=== PATIENT | male | born 1960 | race Caucasian/White ===

== ENCOUNTER → 2017-08-04 | Outpatient (POV) | payer OTHER, SELFPAY | PROVIDERS: Visit Provider Internal Medicine | DX: I10 Essential (primary) hypertension (principal) | CPT/HCPCS: 93017 ==

== ENCOUNTER → 2017-08-04 | Outpatient (CLI) | payer OTHER, SELFPAY | PROVIDERS: Family Provider Family Medicine; Visit Provider Internal Medicine | DX: R06.02 Shortness of breath (principal); I10 Essential (primary) hypertension; R94.31 Abnormal electrocardiogram [ECG] [EKG] | CPT/HCPCS: 93306 ==

== ENCOUNTER → 2018-03-13 12:45 | Outpatient (CLI) | payer OTHER, SELFPAY ==
--- NOTE | 2018-03-13 12:57 | XR_ITS ---
XR chest 2V HISTORY: ITS.REASON: COUGH ORDERING PHYSICIAN: Liv Prieto PATIENT AGE: 57 years COMPARISON: None FINDINGS: The cardiomediastinal silhouette and pulmonary vascularity are within normal limits. No lobar consolidation or collapse. No acute bony anomalies. IMPRESSION: No acute finding
== END ==
PROVIDERS: PCP Family Medicine; Visit Provider Family Medicine
DX: R05 Cough (principal)
CPT/HCPCS: 71046

== ENCOUNTER → 2020-11-17 08:32 | Outpatient (POV) | payer OTHER, SELFPAY | PROVIDERS: Visit Provider Dermatology | DX: Z00.00 Encounter for general adult medical examination without abnormal findings (principal) ==

== ENCOUNTER → 2022-12-20 16:04 | Outpatient (CLI) | payer OTHER, SELFPAY ==
--- NOTE | 2022-12-20 16:09 | MR_ITS ---
PROCEDURE INFORMATION: Exam: MR Lumbar Spine Without Contrast Exam date and time: 12/20/2022 4:36 PM Age: 62 years old Clinical indication: Pain; Lumbago with sciatica; Left; Additional info: Left sided sciatica. Pain down bilateral legs started October 21 2022. TECHNIQUE: Imaging protocol: Magnetic resonance imaging of the lumbar spine without contrast. COMPARISON: No relevant prior studies available. FINDINGS: Bones/joints: The alignment is anatomic. The vertebral body heights are maintained. There is disc space height loss with desiccation at L4-L5. There are also Modic type 2 endplate degenerative changes posteriorly at L4-L5. No acute osseous injury is seen. Spinal cord: Visualized cord, conus medullaris and cauda equina are unremarkable without compression. L1-L2: No significant disc bulge or herniation. No severe spinal canal stenosis. No significant neural foraminal narrowing. L2-L3: L2-L3 minimal diffuse disc bulging is seen without stenosis. L3-L4: L3-L4 there is minimal diffuse disc bulging with degenerative facet hypertrophy and focal prominence of the epidural fat dorsally causing mild stenosis of the spinal canal. The neural foramina are patent. L4-L5: L4-L5 diffuse disc bulging degenerative hypertrophy of the facets and thickened ligamentum flavum cause severe stenosis of the spinal canal with circumferential CSF space effacement at the disc level. There is mild narrowing of the left neural foramen also seen. There is a posterior annular tear also present. L5-S1: L5-S1 minimal central focal disc protrusion is present without stenosis. There is mild facet arthrosis also seen. Soft tissues: Unremarkable. Stomach and bowel: Partially imaged colonic diverticuli. IMPRESSION: Multilevel degenerative disc disease with severe stenosis of the spinal canal at L4-L5 and mild spinal canal stenosis at L3-L4, as described.
== END ==
PROVIDERS: PCP Family Medicine; Visit Provider Family Medicine
DX: M54.50 Low back pain, unspecified (principal); M54.32 Sciatica, left side
CPT/HCPCS: 72148; 76376

== ENCOUNTER 2023-11-10 07:17 | Outpatient (CLI) | payer OTHER, SELFPAY ==
--- NOTE | 2023-11-10 07:20 | US_ITS ---
FINAL REPORT CLINICAL HISTORY: RT SIDE ABD PAIN FINDINGS: Sonographic images of the right upper quadrant were obtained. The pancreas is partially obscured. There is increased echogenicity in the liver consistent with fatty infiltration. The patient is status post cholecystectomy. The common duct measures 3 mm. Limited images of the right kidney are unremarkable. IMPRESSION: Fatty liver. Status post cholecystectomy. Reviewed, Interpreted and Dictated by Vijay Rg III, MD Transcribed by Tanya Richmond Authenticated and . [facility]
== END 2023-11-10 23:59 ==
LOC: RAD 07:17
PROVIDERS: PCP Nurse Practitioner; Visit Provider Nurse Practitioner
DX: R10.31 Right lower quadrant pain (principal)
CPT/HCPCS: 76705

== ENCOUNTER 2024-10-14 10:38 | Outpatient (CLI) | payer OTHER, SELFPAY ==
--- NOTE | 2024-10-14 10:43 | XR_ITS ---
FINAL REPORT TECHNIQUE: 3 views right shoulder CLINICAL HISTORY: INJURY, FT PAIN COMPARISON: None FINDINGS: RIGHT SHOULDER: 3 images of the right shoulder were obtained. There is no evidence of fracture or dislocation. The joint spaces are intact. There is no soft tissue abnormality identified. IMPRESSION: No acute bony abnormality. Reviewed, Interpreted and Dictated by Nimesh Goddard MD Transcribed by Savanna Bright Authenticated and [facility]
--- NOTE | 2024-10-14 10:43 | XR_ITS ---
FINAL REPORT TECHNIQUE: Left foot 3 views CLINICAL HISTORY: Pain. COMPARISON: None FINDINGS: LEFT FOOT: 3 images of the left foot were obtained. There is no evidence of fracture or dislocation. The joint spaces are intact. There is no soft tissue abnormality identified. A moderate plantar calcaneal spur is present. IMPRESSION: Moderate plantar calcaneal spur, without acute bony abnormality. Reviewed, Interpreted and Dictated by Nimesh Goddard MD Transcribed by Savanna Bright Authenticated and [facility]
== END 2024-10-14 23:59 | disposition home or self-care (01) ==
LOC: RAD 10:40
PROVIDERS: PCP Nurse Practitioner; Visit Provider Nurse Practitioner
DX: M25.511 Pain in right shoulder (principal); S49.91XA Unspecified injury of right shoulder and upper arm, initial encounter; M79.672 Pain in left foot
CPT/HCPCS: 73030; 73630

== ENCOUNTER 2024-10-29 09:21 | Day surgery (SDC) | payer OTHER, SELFPAY ==
[2024-10-25 12:11] VITALS: BMI 33.7
[2024-10-29 09:43] VITALS: BP 159/83; PULSE 76; RESP 16; TEMP 36.6; O2SAT 96
--- NOTE | 2024-10-29 09:46 | EXP.GEN.HP ---
HPI HPI HPI: This is a 64-year-old gentleman who presents for colonoscopy. Colon polyps noted in April 2018 (Dr. Peralta). He is without complaint. [facility] Disclaimer: The information contained in this section may have been updated after the patient was seen, as this information can be updated by other users. Medical History (Updated 10/29/24 @ 09:48 by Obinna Xiong MD) History of tuberculosis History of COVID-19 History of gastroesophageal reflux (GERD) Surgical History (Updated 10/25/24 @ 12:09 by Renée Day RN) History of back surgery Family History (Updated 10/25/24 @ 12:09 by Renée Day RN) Pancreatic cancer Sister Prostate cancer Father Brother Social History (Updated 10/25/24 @ 12:10 by Renée Day RN) Smoking Status: Never smoker alcohol intake: current current occupational status: employed Travel in the last 8 weeks: None caffeine: Yes Have you lived/traveled outside [place] in past 30 days?: No Contact w/someone who lives/traveled outside US past 30 days?: No Exposure to someone with infectious disease in past 14 days?: No Do you have a fever (greater than 100.4 F or 38 C)?: No Have you tested positive for COVID-19: No Exposed to someone with COVID-19 in past 14 days?: No Do you have a sore throat?: No Do you have a cough?: No Do you have any weakness?: No Are you experiencing any nausea/vomitting?: No Do you have any diarrhea?: No Are you experiencing any unusual bleeding?: No Do you have any muscle aches/pain?: No Do you have any abdominal pain?: No Are you experiencing loss of taste or smell?: No Meds Home Medications and Allergies Home Medications ?Medication ?Instructions ?Recorded ?Confirmed ?Type omeprazole 40 mg capsule,delayed 40 mg PO DAILY GERD 04/11/18 10/29/24 History release New Prescriptions to Start Prescriptions: Allergies Allergy/AdvReac Type Severity Reaction Status Date / Time morphine (MORPHINE) Allergy Unknown I-ITCHING Verified 10/29/24 09:42 Exam Data for Last 24 hours I & O for Last 24 hours: Intake & Output 10/26/24 10/27/24 10/28/24 10/29/24 11:59 11:59 11:59 11:59 Weight 227 lb 15.998 oz Constitutional Constitutional: no acute distress *Routine HEENT Exam Head: Present normocephalic Eye: Present EOMI ENT: Present mucous membranes moist *Routine Respiratory Exam Respiratory: Absent respiratory distress *Routine Cardiovascular Exam Cardiovascular: Absent tachycardia *Routine Abdominal Exam Abdominal: Present soft *Routine Rectal Exam Rectal:: deferred *Routine Genitalia Exam Genitalia:: deferred Assessment and Plan *Assessment and plan (1) History of colon polyps: Status: Acute Category: Medical Code(s): Z86.0100 - Personal history of colon polyps, unspecified Plan: Colonoscopy today I have discussed the risks and benefits including, but not limited to: Bleeding Infection Damage to surrounding tissue Inherent risks of sedation The patient agrees to proceed.
--- NOTE | 2024-10-29 09:48 | HMH.SCOPE ---
Procedure: Date: 10/29/24 Patient Date of :: 1960 Procedure Performed:: Colonoscopy with polypectomy Indications:: History of colon polyps Note: Colonoscopy in April 2019 (Dr. Peralta) revealed mild hemorrhoidal cushions and a mildly firm prostate with mild asymmetry. Left-sided diverticulosis confirmed. Small left-sided polyps excised. Performing Provider:: Obinna Xiong MD Referring Provider:: . Sedation:: Monitored anesthesia care Procedure:: After informed consent was obtained the patient was taken to the endoscopy suite. Sedation ensued after the patient was transferred to the left lateral decubitus position. Pulse, blood pressure, and oxygen saturation were monitored throughout the procedure. Digital rectal exam revealed no significant abnormality. The colonoscope was placed in position. The entire colon was evaluated. The colonoscope was carefully removed and the patient was transferred to recovery in stable condition. Please see findings and specimens below for detail. Findings:: Bowel preparation moderate to poor Polyp at 60 cm Specimens:: Polyp at 60 cm (cold snare) Recommendations:: Repeat colonoscopy in 2-3 years with alternate/extended bowel preparation Complications:: No immediate with the exception of limited bowel preparation Estimated blood obtained (mL): 1 Colonoscopy Component Colonoscopy Component Was a colonoscopy performed during today's procedure?: Yes Recommended follow up colonoscopy of at least 10 years?: No If no, follow up colonoscopy recommended in ___ years?: (See above) Reason for not recommending >/= 10 yr follow-up interval?: (See above)
--- NOTE | 2024-10-29 09:55 | P.PNANES_ITS ---
[facility] Disclaimer: The information contained in this section may have been updated after the patient was seen, as this information can be updated by other users. Medical History (Updated 10/29/24 @ 09:48 by Obinna Xiong MD) History of tuberculosis History of COVID-19 History of gastroesophageal reflux (GERD) Surgical History (Updated 10/25/24 @ 12:09 by Renée Day RN) History of back surgery Family History (Updated 10/25/24 @ 12:09 by Renée Day RN) Sister Pancreatic cancer Father Prostate cancer Brother Prostate cancer Social History (Updated 10/25/24 @ 12:10 by Renée Day RN) Smoking Status: Never smoker alcohol intake: current substance use type: denies use current occupational status: employed Travel in the last 8 weeks: None caffeine: Yes [facility] Anesthesia Checklist Patient Identification Patient Identification: Arm Band Structural Data Admitted From: Home Planned Operative Procedure/s: Colonoscopy Consent for Planned Operative Procedure(s) Verified: Yes Verified Documents: Surgical Consent and History and Physical NPO Status Verified Time NPO: 05:15 (finished prep) Additional verifications Anesthesia Reactions: No Airway Assessment Mallampati Score:: Class II C-Spine Mobility Assessed: Yes TMJ Mobility Assessed: Yes Dentition: Good Dentition Neurological Assessment Level of Consciousness: Awake, Alert and Appropriate Anesthesia Plan Anesthesia Risk discussed: Yes Anesthesia Plan: Verified ASA Class: II Anesthesia Type: MAC
[2024-10-29 10:01] VITALS: O2SAT 96
[2024-10-29 10:27] VITALS: BP 131/79; PULSE 84; RESP 16; TEMP 36.1; O2SAT 91
[2024-10-29 10:37] VITALS: BP 128/75; PULSE 76; RESP 16; O2SAT 94
[2024-10-29 10:47] VITALS: BP 125/75; PULSE 78; RESP 16; O2SAT 94
[2024-10-29 10:57] VITALS: BP 129/73; PULSE 68; RESP 17; O2SAT 95
== END 2024-10-29 11:02 | disposition home or self-care (01) ==
PROVIDERS: PCP Nurse Practitioner; Visit Provider Surgery
PROC: 0DJD8ZZ Inspection of Lower Intestinal Tract, Via Natural or Artificial Opening Endoscopic (ICD-10-PCS; CPT 45385; principal; 2024-10-29 10:30)
DX: K63.5 Polyp of colon (principal); Z86.0100 Personal history of colon polyps, unspecified
CPT/HCPCS: 45385

== ENCOUNTER 2024-11-06 08:10 | Outpatient (CLI) | payer OTHER, SELFPAY ==
--- NOTE | 2024-11-06 08:14 | CT_ITS ---
FINAL REPORT TECHNIQUE: IV contrast enhanced exam This study was performed with techniques to keep radiation doses as low as reasonably achievable, (ALARA). Individualized dose reduction techniques using automated exposure control or adjustment of mA and/or kV according to the patient's size were employed. CLINICAL HISTORY: DIARRHEA, RIGHT SIDED ABD PAIN COMPARISON: None FINDINGS: CT ABDOMEN PELVIS WITH CONTRAST: Abdomen: The gallbladder has been surgically resected. Liver has an unremarkable CT appearance. The spleen, pancreas and adrenal glands are unremarkable. Kidneys show no mass or obstruction. No bowel obstruction or wall thickening is seen. Pelvis: The appendix is normal in appearance. There is moderate diverticulosis of the descending and sigmoid portions of the colon. No evidence of colitis is identified. No fluid collection or adenopathy is seen. IMPRESSION: Moderate diverticulosis of the descending and sigmoid portions of the colon without evidence of colitis. Normal appendix. Reviewed, Interpreted and Dictated by Andre Lisa MD Transcribed by Savanna Bright Authenticated and [facility]
[2024-11-06] MEDS: SODIUM CHLORIDE 0.9% 10ML SYR (RAD ONLY) 10 ML IV (09:01)
[2024-11-06] MEDS: IOPAMIDOL-370 (76%);100ML BOTTLE 75 ML IV (09:01)
== END 2024-11-06 23:59 | disposition home or self-care (01) ==
LOC: RAD 08:12
PROVIDERS: PCP Nurse Practitioner; Visit Provider Nurse Practitioner
DX: R19.7 Diarrhea, unspecified (principal)
CPT/HCPCS: 74177; Q9967